=== PATIENT | male | born 1965 | race Caucasian/White ===

== ENCOUNTER 2020-09-03 05:29 | Emergency (ER) | payer BC ==
[2020-09-03 05:59] LABS: HEMOGLOBIN 17.3 gm/dl (14.0-17.5); RED BLOOD COUNT 5.71 M/UL (4.20-5.50)
[2020-09-03 06:16] LABS: BUN/CREATININE RATIO 18 (0-10)
== END 2020-09-03 12:00 | disposition short-term general hospital (02) ==
LOC: ER1 05:29
PROVIDERS: Family Medicine
DX: K80.00 Calculus of gallbladder with acute cholecystitis without obstruction (principal); R65.10 Systemic inflammatory response syndrome (SIRS) of non-infectious origin without acute organ dysfunction; D72.829 Elevated white blood cell count, unspecified; I10 Essential (primary) hypertension; E11.9 Type 2 diabetes mellitus without complications; Z20.822 Contact with and (suspected) exposure to COVID-19
CPT/HCPCS: 36415; 76705; 80053; 81001; 82550; 82553; 83605; 83690; 83874; 84484; 85025; 87040; 87077; 87086; 87186; 96365; 96375; 99284; J1100; J2270; J2405; J2543; J7030; Q9967; U0002